=== PATIENT | female | born 1990 | race Caucasian/White ===

== ENCOUNTER 2017-01-04 23:07 | Emergency (ER) | payer OTHER | END 2017-01-05 00:36 | disposition home or self-care (01) | LOC: ER 23:07 | DX: R42 Dizziness and giddiness (principal); M54.2 Cervicalgia; G89.29 Other chronic pain; H73.893 Other specified disorders of tympanic membrane, bilateral; Z79.899 Other long term (current) drug therapy; Z87.442 Personal history of urinary calculi ==